=== PATIENT | male | born 1980 | race African-American/Black ===

== ENCOUNTER 2025-05-31 15:26 | Emergency (ER) | payer OTHER ==
[2025-05-31 16:09] LABS: #Basophils Less than 0.03 10x3/uL (0.0-0.2); #Eosinophils 0.10 10x3/uL (0.0-0.5); #Monocytes 0.29 10x3/uL (0.0-1.1); #Neutrophils 1.17 10x3/uL (1.5-8.4); %Basophils 0.3 % (0.0-2.0); %Eosinophils 3.3 % (0.0-6.0); %Lymphocytes 48.4 % (18.0-47.0); %Monocytes 9.5 % (0.0-10.0); %Neutrophils 38.5 % (40.0-75.0); Hematocrit 31.3 % (38.8-50.0); Hemoglobin 10.2 g/dL (13.5-17.5); Mean Corpuscular Hemoglobin 26.6 pg (27.0-33.0); Mean Corpuscular Volume 81.7 fL (81.2-95.1); Platelet Count 213 10x3/uL (150-450); Red Blood Cell (RBC) Count 3.83 10x6/uL (4.32-5.72); White Blood Cell (WBC) Count 3.04 10x3/uL (3.5-10.5)
[2025-05-31 16:26] LABS: Anion Gap 9 mmol/L (10-20); BUN (Urea Nitrogen) 9 mg/dL (8.9-20.6); Calc. Creatinine Clearance 0 mL/min (70-130); Carbon Dioxide 24 mmol/L (22-29); Chloride 108 mmol/L (98-107); Potassium 3.9 mmol/L (3.5-5.1); Sodium 137 mmol/L (136-145)
[2025-05-31 16:27] LABS: ALT (SGPT) 12 U/L (Less than 45); AST (SGOT) 49 U/L (11-34); Albumin 3.5 g/dL (3.1-4.5); Alkaline Phosphatase 39 U/L (40-110); Bilirubin, Total 0.3 mg/dL (0.3-1.2); Calcium 8.7 mg/dL (7.8-10.44); Globulin 3.8 g/dL (2.4-3.5); Glucose 84 mg/dL (70-105); Magnesium 1.9 mg/dL (1.6-2.6)
[2025-05-31] MEDS ORDERED: Ketorolac Tromethamine 30 MG (1 mL) VIAL ONE (17:53)
== END 2025-05-31 18:06 ==
LOC: CSHERS 15:26 → EEVIPCON 15:26 → CSHERS 18:06
DX: R05.9 Cough, unspecified (principal); B20 Human immunodeficiency virus [HIV] disease
CPT/HCPCS: 71045; 80053; 83735; 85025; 96374; J1885